=== PATIENT | male | born 1965 | race Caucasian/White ===

== ENCOUNTER 2017-03-10 11:16 | Emergency (ER) | payer MEDICAID, MEDICARE ==
[~2017-03-10] VITALS: Ht 182.9 cm; Wt 70.0 kg
[~2017-03-10 11:16] MED LIST: DICL100T2 PO; GABA-531 PO; INSU3INS6 SUBCUT; PROT20 PO
[2017-03-10 11:50] VITALS: BP 175/87
[2017-03-10] MEDS ORDERED: KETOROLAC 60MG/2ML VIAL IM ONE (12:00)
[2017-03-10] MEDS ORDERED: OXYCODONE HCL/ACETAMINOPHEN 5/325MG TABLET PO ONE (12:00)
== END 2017-03-10 13:18 | disposition home or self-care (01) ==
LOC: ER 11:30
DX: N39.0 Urinary tract infection, site not specified (principal); M54.5 Low back pain; E11.9 Type 2 diabetes mellitus without complications; I10 Essential (primary) hypertension; K76.9 Liver disease, unspecified; Z89.422 Acquired absence of other left toe(s); Z88.0 Allergy status to penicillin; Z79.4 Long term (current) use of insulin; Z88.6 Allergy status to analgesic agent
CPT/HCPCS: 99283; J1885; Z7610

== ENCOUNTER 2018-07-15 14:21 | Inpatient (IN) | payer BC, OTHER ==
[~2018-07-15] VITALS: Ht 167.6 cm; Wt 99.8 kg
[2018-07-15] MEDS ORDERED: AZTREONAM 1 G in DEXTROSE 5% WATER 50 ML IV STA (22:34)
[2018-07-15] MEDS ORDERED: SODIUM CHLORIDE 0.9% 1000ML BAG (SEPSIS BOLUS) IV ONE (22:45)
[2018-07-15] MEDS ORDERED: VANCOMYCIN 1 G PREMIX 200 ML IV ONE (22:45)
[2018-07-15 23:11] LABS: BASOPHILS % 0.6 % (0.0-2.0); EOSINOPHILS % 2.1 % (0.0-5.0); HEMATOCRIT. 37.2 % (42.0-52.0); HEMOGLOBIN. 12.6 g/dL (14.0-18.0); LYMPHOCYTES % 19.1 % (20.0-50.0); MEAN CORPUSCULAR VOLUME 94.6 fL (80.0-94.0); MEAN PLATELET VOLUME 7.4 fl (7.4-10.4); MONOCYTES % 7.3 % (2.0-8.0); NEUTROPHILS % 70.9 % (40.0-76.0); PLATELET 190 x1000/uL (130-400); RED BLOOD CELL COUNT 3.93 mill/uL (4.7-6.1); RED CELL DISTRIBUTION WIDTH 13.4 % (11.6-14.6)
[2018-07-15 23:11] LABS: CLARITY URINE CLEAR (CLEAR); COLOR URINE YELLOW (YELLOW); KETONES URINE TRACE (NEGATIVE); LEUKOCYTE ESTERASE URINE NEGATIVE (NEGATIVE); NITRITE URINE NEGATIVE (NEGATIVE); OCCULT BLOOD URINE 2+ (NEGATIVE); PROTEIN URINE 4+ (NEGATIVE); SPECIFIC GRAVITY URINE 1.027 (1.005-1.030)
[2018-07-15 23:19] LABS: CHLORIDE 107 mEq/L (98-107)
[2018-07-16 16:19] VITALS: BP 169/74
[2018-07-16] MEDS ORDERED: LIP40 MT (16:32)
[2018-07-16 20:00] VITALS: BP 155/87
[2018-07-17] VITALS: BP 126/67
[2018-07-17 04:00] VITALS: BP 145/84
[2018-07-17 08:00] VITALS: BP 132/82
[2018-07-17] MEDS ORDERED: ENOXAPARIN 40MG/0.4ML SYR SUBCUT SCH (09:00)
[2018-07-17] MEDS: VANCOMYCIN 1250MG in DEXTROSE 5% WATER 250ML IV SCH (09:02)
[2018-07-17] MEDS: SODIUM CHLORIDE 0.45% 1,000 ML IV SCH ×2 (09:03→21:20)
[2018-07-17] MEDS: ENOXAPARIN 30MG/0.3ML SYR SUBCUT SCH ×2 (09:03→20:42)
[2018-07-17 11:06] LABS: BASOPHILS % 0.7 % (0.0-2.0); EOSINOPHILS % 2.7 % (0.0-5.0); HEMATOCRIT. 31.8 % (42.0-52.0); HEMOGLOBIN. 10.8 g/dL (14.0-18.0); MEAN CORPUSCULAR HEMOGLOBIN 32.4 pg (28.0-32.0); MEAN CORPUSCULAR VOLUME 95.4 fL (80.0-94.0); MEAN PLATELET VOLUME 7.3 fl (7.4-10.4); MONOCYTES % 6.2 % (2.0-8.0); NEUTROPHILS % 73.4 % (40.0-76.0); PLATELET 135 x1000/uL (130-400); RED BLOOD CELL COUNT 3.33 mill/uL (4.7-6.1); RED CELL DISTRIBUTION WIDTH 13.7 % (11.6-14.6)
[2018-07-17 12:00] VITALS: BP 139/71
[2018-07-17] MEDS ORDERED: DEXTROSE 50% WATER 50ML SYRINGE IV PRN (13:15)
[2018-07-17] MEDS: LEVOFLOXACIN 500MG TABLET PO SCH (13:49)
[2018-07-17 16:00] VITALS: BP 124/82
[2018-07-17] MEDS: BLOOD SUGAR DIAGNOSTIC STRIP TEST SCH ×2 (17:34→20:28)
[2018-07-17] MEDS ORDERED: HYDROCODONE/ACETAMINOPHEN 5/325MG TABLET PO PRN (18:15)
[2018-07-17] MEDS ORDERED: DOCUSATE SODIUM 100MG CAPSULE PO PRN (18:15)
[2018-07-17] MEDS ORDERED: HYDRALAZINE 20MG/ML VIAL IV PRN (18:15)
[2018-07-17] MEDS: INSULIN LISPRO 100 UNITS/ML SUBCUT SCH ×2 (18:36→20:43)
[2018-07-17 20:00] VITALS: BP 118/57
[2018-07-17] MEDS: ATORVASTATIN CALCIUM 40MG TABLET PO SCH (20:42)
[2018-07-18] VITALS: BP 118/53
[2018-07-18] MEDS: VANCOMYCIN 1250MG in DEXTROSE 5% WATER 250ML IV SCH (02:26)
[2018-07-18 04:00] VITALS: BP 105/50
[2018-07-18] MEDS: BLOOD SUGAR DIAGNOSTIC STRIP TEST SCH ×4 (06:03→21:02)
[2018-07-18] MEDS: INSULIN LISPRO 100 UNITS/ML SUBCUT SCH ×4 (06:14→21:10)
[2018-07-18 08:07] LABS: HEMATOCRIT 32.6 % (42.0-52.0); MEAN CORPUSCULAR VOLUME 94.6 fL (80.0-94.0); PLATELET 136 x1000/uL (130-400); RED BLOOD CELL COUNT 3.45 mill/uL (4.7-6.1); RED CELL DISTRIBUTION WIDTH 13.1 % (11.6-14.6)
[2018-07-18 08:21] LABS: CHLORIDE 110 mEq/L (98-107)
[2018-07-18] MEDS: AMLODIPINE 5MG TABLET PO SCH (09:13)
[2018-07-18] MEDS: ENOXAPARIN 30MG/0.3ML SYR SUBCUT SCH ×2 (09:14→21:08)
[2018-07-18] MEDS: LEVOFLOXACIN 500MG TABLET PO SCH (14:04)
[2018-07-18] MEDS: SODIUM CHLORIDE 0.45% 1,000 ML IV SCH (17:00)
[2018-07-18 20:00] VITALS: BP 100/57
[2018-07-18] MEDS: ATORVASTATIN CALCIUM 40MG TABLET PO SCH (21:08)
[2018-07-18] MEDS ORDERED: PIPERACILLIN/TAZOBACTAM 2.25 G in DEXTROSE 5% WATER 50 ML IV SCH (22:00)
[2018-07-18] MEDS: DIPHENHYDRAMINE 50MG/ML VIAL IV PRN (22:35)
[2018-07-19] VITALS: BP 104/59
[2018-07-19] MEDS: SODIUM CHLORIDE 0.45% 1,000 ML IV SCH ×2 (00:29→13:20)
[2018-07-19] MEDS: VANCOMYCIN 1250MG in DEXTROSE 5% WATER 250ML IV SCH (02:00)
[2018-07-19 04:00] VITALS: BP 134/73
[2018-07-19] MEDS: BLOOD SUGAR DIAGNOSTIC STRIP TEST SCH ×4 (06:54→20:51)
[2018-07-19 08:00] VITALS: BP 122/75
[2018-07-19] MEDS: ENOXAPARIN 30MG/0.3ML SYR SUBCUT SCH ×2 (08:33→21:12)
[2018-07-19] MEDS: AMLODIPINE 5MG TABLET PO SCH (08:33)
[2018-07-19] MEDS: INSULIN LISPRO 100 UNITS/ML SUBCUT SCH ×4 (08:34→21:13)
[2018-07-19 12:00] VITALS: BP 118/72
[2018-07-19] MEDS: LEVOFLOXACIN 500MG TABLET PO SCH (12:41)
[2018-07-19 16:00] VITALS: BP 111/47
[2018-07-19 20:00] VITALS: BP 131/77
[2018-07-19] MEDS: ATORVASTATIN CALCIUM 40MG TABLET PO SCH (21:12)
[2018-07-19] MEDS: DIPHENHYDRAMINE 50MG/ML VIAL IV PRN (21:59)
[2018-07-20] VITALS: BP 129/76
[2018-07-20] MEDS: VANCOMYCIN 1250MG in DEXTROSE 5% WATER 250ML IV SCH (01:20)
[2018-07-20 04:00] VITALS: BP 132/75
[2018-07-20] MEDS: SODIUM CHLORIDE 0.45% 1,000 ML IV SCH ×2 (05:32→17:41)
[2018-07-20 08:00] VITALS: BP 118/61
[2018-07-20] MEDS: BLOOD SUGAR DIAGNOSTIC STRIP TEST SCH ×4 (08:37→21:00)
[2018-07-20] MEDS: AMLODIPINE 5MG TABLET PO SCH (09:41)
[2018-07-20] MEDS: ENOXAPARIN 30MG/0.3ML SYR SUBCUT SCH ×2 (09:42→20:39)
[2018-07-20] MEDS: INSULIN LISPRO 100 UNITS/ML SUBCUT SCH ×4 (09:44→20:40)
[2018-07-20] MEDS: LEVOFLOXACIN 500MG TABLET PO SCH (10:53)
[2018-07-20 12:00] VITALS: BP 103/64
[2018-07-20] MEDS ORDERED: NORMAL SALINE 0.9% 10 ML SYR ONE (13:56)
[2018-07-20] MEDS ORDERED: GENTAMICIN SULF 40MG/ML 2ML VIAL ONE (13:56)
[2018-07-20] MEDS ORDERED: BACITRACIN 50,000 UNITS/VIAL ONE (13:56)
[2018-07-20] MEDS ORDERED: LIDOCAINE HCL 1% 20ML VIAL (Pyxis) INJ ONE ×2 (13:56→14:19)
[2018-07-20] MEDS ORDERED: BUPIVACAINE HCL/PF 0.5% (5MG/ML) 10ML ONE (13:56)
[2018-07-20] MEDS ORDERED: FENTANYL CITRATE/PF 50MCG/ML 2ML VIAL ONE (14:18)
[2018-07-20] MEDS ORDERED: PROPOFOL 200MG/20ML VIAL IV ONE (14:18)
[2018-07-20] MEDS ORDERED: MIDAZOLAM HCL 2 MG/2 ML VIAL ONE (14:18)
[2018-07-20] MEDS ORDERED: GLYCOPYRROLATE 0.2 MG/ML 2ML VIAL ONE (14:19)
[2018-07-20] MEDS ORDERED: METOCLOPRAMIDE HCL 10MG/2ML VIAL ONE (14:20)
[2018-07-20] MEDS ORDERED: ONDANSETRON HCL 4MG/2ML INJ ONE (14:20)
[2018-07-20] MEDS ORDERED: SUCCINYLCHOLINE CHLORIDE 200MG/10ML IV ONE (14:20)
[2018-07-20] MEDS ORDERED: HYDROMORPHONE HCL/PF 2MG/ML CPJ IV PRN (16:00)
[2018-07-20] MEDS ORDERED: MEPERIDINE HCL/PF 25MG/ML CPJ IV PRN (16:00)
[2018-07-20] MEDS ORDERED: ONDANSETRON HCL 4MG/2ML INJ IV PRN (16:00)
[2018-07-20] MEDS ORDERED: SODIUM CHLORIDE 0.9% 1,000 ML IV ONE (16:15)
[2018-07-20 17:40] VITALS: BP 100/59
[2018-07-20 18:52] LABS: HEMATOCRIT 28.3 % (42.0-52.0); HEMOGLOBIN 9.5 g/dL (14.0-18.0); MEAN CORPUSCULAR VOLUME 95.3 fL (80.0-94.0); PLATELET 140 x1000/uL (130-400); RED BLOOD CELL COUNT 2.96 mill/uL (4.7-6.1); RED CELL DISTRIBUTION WIDTH 13.6 % (11.6-14.6)
[2018-07-20 20:00] VITALS: BP 109/53
[2018-07-20] MEDS: ATORVASTATIN CALCIUM 40MG TABLET PO SCH (20:38)
[2018-07-20] MEDS: DIPHENHYDRAMINE 50MG/ML VIAL IV PRN (21:06)
[2018-07-20] MEDS ORDERED: INSULIN GLARGINE UD 100 UNITS/ML SYR SUBCUT SCH (22:00)
[2018-07-21] VITALS (8 sets, daily range): BP systolic 92–130; BP diastolic 41–67
[2018-07-21] MEDS: VANCOMYCIN 1250MG in DEXTROSE 5% WATER 250ML IV SCH (01:18)
[2018-07-21] MEDS: SODIUM CHLORIDE 0.45% 1,000 ML IV SCH (05:23)
[2018-07-21 06:46] LABS: HEMATOCRIT 26.8 % (42.0-52.0); HEMOGLOBIN 8.9 g/dL (14.0-18.0); MEAN CORPUSCULAR HEMOGLOBIN 32.1 pg (28.0-32.0); PLATELET 124 x1000/uL (130-400); RED BLOOD CELL COUNT 2.79 mill/uL (4.7-6.1); RED CELL DISTRIBUTION WIDTH 13.5 % (11.6-14.6)
[2018-07-21] MEDS: BLOOD SUGAR DIAGNOSTIC STRIP TEST SCH ×4 (07:40→20:11)
[2018-07-21] MEDS: AMLODIPINE 5MG TABLET PO SCH (08:29)
[2018-07-21] MEDS: ENOXAPARIN 30MG/0.3ML SYR SUBCUT SCH ×2 (08:30→20:11)
[2018-07-21] MEDS: INSULIN LISPRO 100 UNITS/ML SUBCUT SCH ×4 (08:31→20:19)
[2018-07-21] MEDS: LEVOFLOXACIN 500MG TABLET PO SCH (11:36)
[2018-07-21] MEDS: ATORVASTATIN CALCIUM 40MG TABLET PO SCH (20:11)
[2018-07-22] MEDS ORDERED: VANCOMYCIN 1250MG in DEXTROSE 5% WATER 250ML IV SCH ×4 (14:00)
== END 2018-07-21 22:00 | DRG 240 ==
LOC: ER 14:21 → 7WST 07-16 01:22 → ENRESERV 07-16 15:20
PROVIDERS: ADMIT Internal Medicine; ATTEND Internal Medicine
PROC: 02HV33Z Insertion of Infusion Device into Superior Vena Cava, Percutaneous Approach (ICD-10-PCS; 2018-07-17)
PROC: B5181ZA Fluoroscopy of Superior Vena Cava using Low Osmolar Contrast, Guidance (ICD-10-PCS; 2018-07-17)
PROC: B548ZZA Ultrasonography of Superior Vena Cava, Guidance (ICD-10-PCS; 2018-07-17)
PROC: 0Y6M0Z9 Detachment at Right Foot, Partial 1st Ray, Open Approach (ICD-10-PCS; principal; 2018-07-20)
PROC: 0Y6M0ZB Detachment at Right Foot, Partial 2nd Ray, Open Approach (ICD-10-PCS; 2018-07-20)
PROC: 0Y6M0ZC Detachment at Right Foot, Partial 3rd Ray, Open Approach (ICD-10-PCS; 2018-07-20)
PROC: 0Y6M0ZD Detachment at Right Foot, Partial 4th Ray, Open Approach (ICD-10-PCS; 2018-07-20)
PROC: 0Y6M0ZF Detachment at Right Foot, Partial 5th Ray, Open Approach (ICD-10-PCS; 2018-07-20)
DX: E11.52 Type 2 diabetes mellitus with diabetic peripheral angiopathy with gangrene (principal); L03.115 Cellulitis of right lower limb; L97.526 Non-pressure chronic ulcer of other part of left foot with bone involvement without evidence of necrosis; E11.42 Type 2 diabetes mellitus with diabetic polyneuropathy; E11.22 Type 2 diabetes mellitus with diabetic chronic kidney disease; E11.610 Type 2 diabetes mellitus with diabetic neuropathic arthropathy; E11.621 Type 2 diabetes mellitus with foot ulcer; E11.65 Type 2 diabetes mellitus with hyperglycemia; E11.21 Type 2 diabetes mellitus with diabetic nephropathy; I13.10 Hypertensive heart and chronic kidney disease without heart failure, with stage 1 through stage 4 chronic kidney disease, or unspecified chronic kidney disease; N18.9 Chronic kidney disease, unspecified; D64.9 Anemia, unspecified; E66.9 Obesity, unspecified; M17.11 Unilateral primary osteoarthritis, right knee; Z79.2 Long term (current) use of antibiotics; Z88.0 Allergy status to penicillin; Z88.1 Allergy status to other antibiotic agents; Z89.422 Acquired absence of other left toe(s); Z91.19 Patient's noncompliance with other medical treatment and regimen; Z68.35 Body mass index [BMI] 35.0-35.9, adult
CPT/HCPCS: 36415; 36569; 71045; 73630; 73721; 76937; 77001; 80048; 80061; 80202; 82962; 83036; 83605; 84145; 84484; 85027; 87070; 87077; 87186; 88305; 88311; 93005; 93306; 93923; 93970; 96365; 96367; 97162; 97164; 97530; 99285; C1725; J0330; J1200; J1580; J1650; J1815; J2250; J2405; J2704; J2765; J3010; J3370; J3490; J7030; J7060

== ENCOUNTER 2019-03-17 17:59 | Inpatient (IN) | payer MEDICARE, OTHER ==
[~2019-03-17] VITALS: Ht 172.7 cm; Wt 113.4 kg
[~2019-03-17 17:59] MED LIST changes: -DICL100T2 PO; -GABA-531 PO; -INSU3INS6 SUBCUT; +LIP40 MT; -PROT20 PO
[2019-03-17] MEDS ORDERED: VANCOMYCIN 1 G PREMIX 200 ML IV ONE (18:30)
[2019-03-17] MEDS ORDERED: ONDANSETRON HCL 4MG/2ML INJ IV ONE (18:30)
[2019-03-17] MEDS ORDERED: FENTANYL CITRATE/PF 50MCG/ML 2ML VIAL IV ONE (18:30)
[2019-03-17] MEDS ORDERED: SODIUM CHLORIDE 0.9% 1000ML BAG (SEPSIS BOLUS) IV ONE (18:30)
[2019-03-17 18:40] LABS: BG BASE EXCESS -6.7 mmol/L (-2.0-2.0); BG CARBOXYHEMOGLOBIN 0.3 % (0.5-1.5); BG DEOXYHEMOGLOBIN 5.6 % (0.0-5.0); BG FRACTION INSPIRED OXYGEN 21; BG HCO3 ACT 17.3 mmol/L (22.0-26.0); BG METHEMOGLOBIN 0.2 % (0.0-1.5); BG OXYGEN SATURATION 94.4 % (92.0-98.5); BG OXYHEMOGLOBIN 93.9 % (94.0-97.0); BG PCO2 29.6 mmHg (35.0-45.0); BG PH 7.384 (7.350-7.450); BG PO2 66.9 mmHg (75.0-100.0); BG SAMPLE SITE LEFT RADIAL; BG TOTAL HEMOGLOBIN 10.7 g/dL (12.0-18.0); BG VENT MODE ROOM AIR
[2019-03-17 18:57] LABS: BASOPHILS % 0.3 % (0.0-2.0); CHLORIDE 100 mEq/L (98-107); EOSINOPHILS % 1.5 % (0.0-5.0); HEMATOCRIT. 29.3 % (42.0-52.0); INR 1.1; LYMPHOCYTES % 8.8 % (20.0-50.0); MEAN CORPUSCULAR HEMOGLOBIN 31.8 pg (28.0-32.0); MEAN CORPUSCULAR VOLUME 93.5 fL (80.0-94.0); MEAN PLATELET VOLUME 6.9 fl (7.4-10.4); MONOCYTES % 13.7 % (2.0-8.0); NEUTROPHILS % 75.7 % (40.0-76.0); PLATELET 241 x1000/uL (130-400); PROTHROMBIN TIME 11.6 sec (9.6-11.0); RED BLOOD CELL COUNT 3.13 mill/uL (4.7-6.1)
[2019-03-17] MEDS ORDERED: LEVOFLOXACIN 500MG PREMIX 100 ML IV ONE (19:00)
[2019-03-17 19:01] LABS: ETHANOL BLOOD < 10 mg/dL
[2019-03-17] MEDS ORDERED: ACETAMINOPHEN 325MG TABLET PO ONE (19:15)
[2019-03-17] MEDS ORDERED: BACITRACIN ZINC OINT UDPKT TOP ONE (19:15)
[2019-03-17] MEDS ORDERED: TETANUS, DIPHTHERIA, PERTUSSIS VAC/PF 0.5ML (>7YR OLD) IM ONE (19:15)
[2019-03-17] MEDS ORDERED: LIDOCAINE HCL/PF 1% 10 MG/ML 5ML VIAL IJ ONE (19:15)
[2019-03-17] MEDS ORDERED: IBUPROFEN 600MG TABLET PO ONE (19:15)
[2019-03-17] MEDS ORDERED: FUROSEMIDE 20MG/2ML VIAL IVP ONE (19:30)
[2019-03-17] MEDS ORDERED: ENOXAPARIN 80MG/0.8ML SYR SUBCUT ONE (20:00)
[2019-03-17] MEDS ORDERED: INSULIN REGULAR (HUMULIN R) 300UNITS/3ML IV ONE (20:30)
[2019-03-17] MEDS ORDERED: NOREPINEPHRINE 4MG/250ML PMX 250 ML IV ONE (21:15)
[2019-03-17] MEDS ORDERED: NOREPINEPHRINE 4 MG in DEXT 5% WATER 246 ML IV ONE ×2 (21:30→23:00)
[2019-03-17] MEDS ORDERED: NOREPINEPHRINE 4MG/250ML PMX 250 ML IV SCH (23:45)
[2019-03-17 23:49] VITALS: BP 92/41
[2019-03-18] VITALS (99 sets, daily range): BP systolic 63–125; BP diastolic 20–71
[2019-03-18] MEDS ORDERED: SODIUM CHLORIDE 0.9% 1,000 ML IV ONE ×2 (03:30)
[2019-03-18] MEDS ORDERED: DEXTROSE 50% WATER 50ML SYRINGE IV PRN ×2 (03:30→18:45)
[2019-03-18] MEDS: HYDROMORPHONE HCL/PF 2MG/ML CPJ IV PRN ×3 (03:56→22:27)
[2019-03-18] MEDS ORDERED: VANCOMYCIN 1 G PREMIX 200 ML IV SCH (05:00)
[2019-03-18] MEDS: ENOXAPARIN 100MG/ML SYR SUBCUT SCH (06:03)
[2019-03-18 07:03] LABS: HEMATOCRIT. 27.8 % (42.0-52.0); HEMOGLOBIN. 9.2 g/dL (14.0-18.0); MEAN CORPUSCULAR HEMOGLOBIN 31.4 pg (28.0-32.0); MEAN CORPUSCULAR VOLUME 94.4 fL (80.0-94.0); MEAN PLATELET VOLUME 6.8 fl (7.4-10.4); PLATELET 264 x1000/uL (130-400); RED BLOOD CELL COUNT 2.94 mill/uL (4.7-6.1); RED CELL DISTRIBUTION WIDTH 13.1 % (11.6-14.6)
[2019-03-18] MEDS: BLOOD SUGAR DIAGNOSTIC STRIP TEST SCH ×4 (07:29→20:00)
[2019-03-18] MEDS ORDERED: INSULIN LISPRO 100 UNITS/ML SUBCUT SCH ×3 (08:00→16:00)
[2019-03-18 08:21] LABS: BG BASE EXCESS -12.5 mmol/L (-2.0-2.0); BG CARBOXYHEMOGLOBIN 0.5 % (0.5-1.5); BG DEOXYHEMOGLOBIN 3.1 % (0.0-5.0); BG FRACTION INSPIRED OXYGEN 21; BG HCO3 ACT 14.1 mmol/L (22.0-26.0); BG METHEMOGLOBIN 0.3 % (0.0-1.5); BG OXYGEN SATURATION 96.9 % (92.0-98.5); BG OXYHEMOGLOBIN 96.1 % (94.0-97.0); BG PCO2 34.7 mmHg (35.0-45.0); BG PH 7.227 (7.350-7.450); BG PO2 93.7 mmHg (75.0-100.0); BG SAMPLE SITE RIGHT RADIAL; BG TOTAL HEMOGLOBIN 12.5 g/dL (12.0-18.0); BG VENT MODE ROOM AIR
[2019-03-18] MEDS: FAMOTIDINE 20MG/2ML VIAL IV SCH (09:10)
[2019-03-18 09:23] LABS: PLATELET ESTIMATE NORMAL
[2019-03-18] MEDS ORDERED: SODIUM BICARBONATE 8.4% 1 MEQ/ML 50ML SYR IV NR (10:12)
[2019-03-18] MEDS ORDERED: SODIUM BICARBONATE 100 MEQ in SODIUM CHLORIDE 0.45% 1,000 ML IV SCH (11:30)
[2019-03-18] MEDS ORDERED: INSULIN GLARGINE UD 100 UNITS/ML SYR SUBCUT NR (12:30)
[2019-03-18 12:34] LABS: BG BASE EXCESS -8.9 mmol/L (-2.0-2.0); BG CARBOXYHEMOGLOBIN 0.3 % (0.5-1.5); BG DEOXYHEMOGLOBIN 2.6 % (0.0-5.0); BG FRACTION INSPIRED OXYGEN 21; BG HCO3 ACT 16.6 mmol/L (22.0-26.0); BG METHEMOGLOBIN 0.1 % (0.0-1.5); BG OXYGEN SATURATION 97.4 % (92.0-98.5); BG PCO2 34.2 mmHg (35.0-45.0); BG PH 7.303 (7.350-7.450); BG PO2 93.6 mmHg (75.0-100.0); BG SAMPLE SITE RIGHT RADIAL; BG TOTAL HEMOGLOBIN 10.3 g/dL (12.0-18.0); BG VENT MODE ROOM AIR
[2019-03-18] MEDS ORDERED: HEPARIN 100 UNITS/1 ML VIAL IVF PRN (14:00)
[2019-03-18] MEDS ORDERED: BLOOD SUGAR DIAGNOSTIC STRIP TEST SCH (16:00)
[2019-03-18] MEDS: SODIUM BICARBONATE 100 MEQ in SODIUM CHLORIDE 0.9% 1,000 ML IV SCH (17:32)
[2019-03-18] MEDS: DIPHENHYDRAMINE 50MG/ML VIAL IV PRN ×2 (17:32→22:27)
[2019-03-18] MEDS: NOREPINEPHRINE 4 MG in DEXT 5% WATER 246 ML IV PRN (17:33)
[2019-03-18] MEDS: INSULIN LISPRO 100 UNITS/ML SUBCUT SCH ×2 (18:56→22:52)
[2019-03-18] MEDS ORDERED: LEVOFLOXACIN 500MG PREMIX 100 ML IV SCH (19:00)
[2019-03-19] VITALS (75 sets, daily range): BP systolic 65–146; BP diastolic 35–96
[2019-03-19] MEDS: BLOOD SUGAR DIAGNOSTIC STRIP TEST SCH ×6 (04:00→20:48)
[2019-03-19] MEDS: INSULIN LISPRO 100 UNITS/ML SUBCUT SCH ×6 (05:17→20:21)
[2019-03-19] MEDS: SODIUM BICARBONATE 100 MEQ in SODIUM CHLORIDE 0.9% 1,000 ML IV SCH ×2 (05:18→18:20)
[2019-03-19] MEDS: NOREPINEPHRINE 4 MG in DEXT 5% WATER 246 ML IV PRN (06:05)
[2019-03-19 06:12] LABS: HEMATOCRIT. 28.4 % (42.0-52.0); HEMOGLOBIN. 9.4 g/dL (14.0-18.0); MEAN PLATELET VOLUME 6.5 fl (7.4-10.4); PLATELET 274 x1000/uL (130-400); RED BLOOD CELL COUNT 3.02 mill/uL (4.7-6.1); RED CELL DISTRIBUTION WIDTH 13.2 % (11.6-14.6)
[2019-03-19] MEDS ORDERED: VANCOMYCIN 1500MG in DEXTROSE 5% WATER 250ML IV SCH (09:00)
[2019-03-19] MEDS: HYDROMORPHONE HCL/PF 2MG/ML CPJ IV PRN ×2 (09:35→21:06)
[2019-03-19] MEDS: FAMOTIDINE 20MG/2ML VIAL IV SCH (09:38)
[2019-03-19 09:46] LABS: BG BASE EXCESS -8.6 mmol/L (-2.0-2.0); BG CARBOXYHEMOGLOBIN 0.3 % (0.5-1.5); BG DEOXYHEMOGLOBIN 4.8 % (0.0-5.0); BG FRACTION INSPIRED OXYGEN 21; BG HCO3 ACT 16.8 mmol/L (22.0-26.0); BG METHEMOGLOBIN 0.1 % (0.0-1.5); BG OXYGEN SATURATION 95.2 % (92.0-98.5); BG OXYHEMOGLOBIN 94.8 % (94.0-97.0); BG PCO2 34.2 mmHg (35.0-45.0); BG PH 7.309 (7.350-7.450); BG PO2 73.9 mmHg (75.0-100.0); BG SAMPLE SITE LEFT BRACHIAL; BG TOTAL HEMOGLOBIN 9.5 g/dL (12.0-18.0); BG VENT MODE ROOM AIR
[2019-03-19] MEDS ORDERED: SODIUM BICARBONATE 8.4% 1 MEQ/ML 50ML SYR IV NR (11:00)
[2019-03-19] MEDS: DIPHENHYDRAMINE 50MG/ML VIAL IV PRN ×2 (12:48→21:07)
[2019-03-19] MEDS ORDERED: INSULIN GLARGINE UD 100 UNITS/ML SYR SUBCUT NR (16:30)
[2019-03-19] MEDS: ENOXAPARIN 100MG/ML SYR SUBCUT SCH (18:29)
[2019-03-19] MEDS: MIDODRINE HCL 5MG TABLET PO SCH (18:29)
[2019-03-20] VITALS (87 sets, daily range): BP systolic 47–127; BP diastolic 23–79
[2019-03-20] MEDS: BLOOD SUGAR DIAGNOSTIC STRIP TEST SCH ×6 (00:28→20:00)
[2019-03-20] MEDS: INSULIN LISPRO 100 UNITS/ML SUBCUT SCH ×6 (00:35→21:14)
[2019-03-20] MEDS: NOREPINEPHRINE 4 MG in DEXT 5% WATER 246 ML IV PRN (00:37)
[2019-03-20] MEDS: SODIUM BICARBONATE 100 MEQ in SODIUM CHLORIDE 0.9% 1,000 ML IV SCH ×2 (02:30→13:56)
[2019-03-20] MEDS: HYDROMORPHONE HCL/PF 2MG/ML CPJ IV PRN ×3 (06:07→19:08)
[2019-03-20] MEDS: DIPHENHYDRAMINE 50MG/ML VIAL IV PRN ×2 (06:08→15:19)
[2019-03-20] MEDS: ENOXAPARIN 100MG/ML SYR SUBCUT SCH ×2 (07:00→17:38)
[2019-03-20 07:49] LABS: HEMATOCRIT. 25.5 % (42.0-52.0); HEMOGLOBIN. 8.6 g/dL (14.0-18.0); MEAN CORPUSCULAR HEMOGLOBIN 31.4 pg (28.0-32.0); MEAN PLATELET VOLUME 6.4 fl (7.4-10.4); PLATELET 210 x1000/uL (130-400); RED BLOOD CELL COUNT 2.74 mill/uL (4.7-6.1); RED CELL DISTRIBUTION WIDTH 13.5 % (11.6-14.6)
[2019-03-20] MEDS: MIDODRINE HCL 5MG TABLET PO SCH ×3 (08:26→17:39)
[2019-03-20] MEDS: FAMOTIDINE 20MG/2ML VIAL IV SCH (08:26)
[2019-03-20] MEDS ORDERED: VANCOMYCIN 1 G PREMIX 200 ML IV NR (09:30)
[2019-03-20] MEDS ORDERED: INSULIN GLARGINE UD 100 UNITS/ML SYR SUBCUT SCH (10:00)
[2019-03-20 10:16] LABS: BG BASE EXCESS -2.5 mmol/L (-2.0-2.0); BG CARBOXYHEMOGLOBIN 0.3 % (0.5-1.5); BG DEOXYHEMOGLOBIN 4.6 % (0.0-5.0); BG FRACTION INSPIRED OXYGEN 24; BG HCO3 ACT 23.6 mmol/L (22.0-26.0); BG METHEMOGLOBIN 0.1 % (0.0-1.5); BG OXYGEN SATURATION 95.4 % (92.0-98.5); BG PH 7.319 (7.350-7.450); BG PO2 76.9 mmHg (75.0-100.0); BG SAMPLE SITE RIGHT RADIAL; BG TOTAL HEMOGLOBIN 9.4 g/dL (12.0-18.0); BG VENT MODE NASAL CANNULA
[2019-03-20 14:27] LABS: CLARITY URINE TURBID (CLEAR); COLOR URINE DARK YELLOW (YELLOW); KETONES URINE TRACE (NEGATIVE); LEUKOCYTE ESTERASE URINE TRACE (NEGATIVE); NITRITE URINE NEGATIVE (NEGATIVE); OCCULT BLOOD URINE NEGATIVE (NEGATIVE); PROTEIN URINE 3+ (NEGATIVE); SPECIFIC GRAVITY URINE 1.018 (1.005-1.030)
[2019-03-20 14:36] LABS: PLATELET ESTIMATE NORMAL
[2019-03-20] MEDS: DOCUSATE SODIUM 100MG CAPSULE PO SCH (21:13)
[2019-03-21] VITALS (74 sets, daily range): BP systolic 76–155; BP diastolic 27–84
[2019-03-21] MEDS: INSULIN LISPRO 100 UNITS/ML SUBCUT SCH ×6 (01:08→20:17)
[2019-03-21] MEDS: DIPHENHYDRAMINE 50MG/ML VIAL IV PRN (01:13)
[2019-03-21] MEDS: SODIUM BICARBONATE 100 MEQ in SODIUM CHLORIDE 0.9% 1,000 ML IV SCH ×2 (01:28→13:23)
[2019-03-21] MEDS: HYDROMORPHONE HCL/PF 2MG/ML CPJ IV PRN ×4 (01:28→20:18)
[2019-03-21] MEDS: BLOOD SUGAR DIAGNOSTIC STRIP TEST SCH ×6 (04:54→20:18)
[2019-03-21] MEDS: ENOXAPARIN 100MG/ML SYR SUBCUT SCH ×2 (05:43→17:32)
[2019-03-21 06:59] LABS: HEMATOCRIT. 24.1 % (42.0-52.0); HEMOGLOBIN. 8.1 g/dL (14.0-18.0); MEAN CORPUSCULAR HEMOGLOBIN 31.2 pg (28.0-32.0); MEAN PLATELET VOLUME 6.5 fl (7.4-10.4); PLATELET 173 x1000/uL (130-400); RED BLOOD CELL COUNT 2.59 mill/uL (4.7-6.1); RED CELL DISTRIBUTION WIDTH 13.7 % (11.6-14.6)
[2019-03-21] MEDS: MIDODRINE HCL 5MG TABLET PO SCH ×3 (09:21→16:53)
[2019-03-21] MEDS: DOCUSATE SODIUM 100MG CAPSULE PO SCH ×2 (09:21→16:12)
[2019-03-21] MEDS: FAMOTIDINE 20MG/2ML VIAL IV SCH (09:49)
[2019-03-21] MEDS ORDERED: INSULIN GLARGINE UD 100 UNITS/ML SYR SUBCUT SCH (10:00)
[2019-03-21] MEDS: INSULIN GLARGINE UD 100 UNITS/ML SYR SUBCUT SCH (10:32)
[2019-03-21 11:40] LABS: NUCLEATED RED BLOOD CELLS 1 /100 WBC; PLATELET ESTIMATE NORMAL
[2019-03-21] MEDS ORDERED: FUROSEMIDE 40MG/4ML VIAL IVP NR (14:30)
[2019-03-21 18:52] LABS: NUCLEATED RED BLOOD CELLS 1 /100 WBC; PLATELET ESTIMATE NORMAL
[2019-03-21] MEDS ORDERED: VANCOMYCIN 1 G PREMIX 200 ML IV NR (22:00)
[2019-03-22] VITALS (85 sets, daily range): BP systolic 73–159; BP diastolic 38–95
[2019-03-22] MEDS: INSULIN LISPRO 100 UNITS/ML SUBCUT SCH ×7 (00:03→23:54)
[2019-03-22] MEDS: BLOOD SUGAR DIAGNOSTIC STRIP TEST SCH ×7 (00:04→23:54)
[2019-03-22] MEDS: SODIUM BICARBONATE 100 MEQ in SODIUM CHLORIDE 0.9% 1,000 ML IV SCH (00:04)
[2019-03-22] MEDS: DIPHENHYDRAMINE 50MG/ML VIAL IV PRN ×3 (04:34→16:33)
[2019-03-22] MEDS: HYDROMORPHONE HCL/PF 2MG/ML CPJ IV PRN ×3 (04:41→16:33)
[2019-03-22] MEDS: ENOXAPARIN 100MG/ML SYR SUBCUT SCH ×2 (05:44→18:10)
[2019-03-22 06:40] LABS: HEMATOCRIT. 26.6 % (42.0-52.0); MEAN CORPUSCULAR HEMOGLOBIN 31.4 pg (28.0-32.0); MEAN CORPUSCULAR VOLUME 93.4 fL (80.0-94.0); MEAN PLATELET VOLUME 6.7 fl (7.4-10.4); PLATELET 185 x1000/uL (130-400); RED BLOOD CELL COUNT 2.85 mill/uL (4.7-6.1); RED CELL DISTRIBUTION WIDTH 13.9 % (11.6-14.6)
[2019-03-22 10:45] LABS: NUCLEATED RED BLOOD CELLS 1 /100 WBC; PLATELET ESTIMATE NORMAL
[2019-03-22] MEDS ORDERED: POTASSIUM CHLORIDE 20MEQ TABLET SR PO NR (11:15)
[2019-03-22] MEDS: MIDODRINE HCL 5MG TABLET PO SCH ×3 (11:35→16:32)
[2019-03-22] MEDS: DOCUSATE SODIUM 100MG CAPSULE PO SCH ×2 (11:35→16:55)
[2019-03-22] MEDS: FAMOTIDINE 20MG/2ML VIAL IV SCH (11:36)
[2019-03-22] MEDS: INSULIN GLARGINE UD 100 UNITS/ML SYR SUBCUT SCH (11:37)
[2019-03-22] MEDS ORDERED: FUROSEMIDE 40MG/4ML VIAL IVP SCH (11:45)
[2019-03-22] MEDS: NOREPINEPHRINE 4 MG in DEXT 5% WATER 246 ML IV PRN (18:10)
[2019-03-23] VITALS (86 sets, daily range): BP systolic 72–164; BP diastolic 27–99
[2019-03-23] MEDS ORDERED: SODIUM BICARBONATE 100 MEQ in SODIUM CHLORIDE 0.9% 1,000 ML IV SCH ×2
[2019-03-23] MEDS: HYDROMORPHONE HCL/PF 2MG/ML CPJ IV PRN ×4 (00:01→21:05)
[2019-03-23] MEDS: INSULIN LISPRO 100 UNITS/ML SUBCUT SCH ×4 (04:00→22:46)
[2019-03-23] MEDS: BLOOD SUGAR DIAGNOSTIC STRIP TEST SCH ×5 (04:14→21:36)
[2019-03-23 06:13] LABS: HEMATOCRIT. 26.1 % (42.0-52.0); HEMOGLOBIN. 8.7 g/dL (14.0-18.0); MEAN CORPUSCULAR VOLUME 93.5 fL (80.0-94.0); MEAN PLATELET VOLUME 6.1 fl (7.4-10.4); PLATELET 181 x1000/uL (130-400)
[2019-03-23] MEDS: DIPHENHYDRAMINE 50MG/ML VIAL IV PRN ×3 (07:12→16:52)
[2019-03-23] MEDS ORDERED: VANCOMYCIN 1 G PREMIX 200 ML IV NR (09:00)
[2019-03-23] MEDS: DOCUSATE SODIUM 100MG CAPSULE PO SCH ×2 (09:00→17:00)
[2019-03-23] MEDS: FAMOTIDINE 20MG/2ML VIAL IV SCH (09:38)
[2019-03-23] MEDS ORDERED: SODIUM BICARBONATE 4% (2.4MEQ) 5ML VIAL IV ONE (09:49)
[2019-03-23] MEDS ORDERED: LIDOCAINE HCL 1% 20ML VIAL (Pyxis) INJ ONE (09:49)
[2019-03-23] MEDS: INSULIN GLARGINE UD 100 UNITS/ML SYR SUBCUT SCH (10:00)
[2019-03-23 10:42] LABS: PLATELET ESTIMATE NORMAL
[2019-03-23] MEDS ORDERED: FUROSEMIDE 40MG/4ML VIAL IVP SCH (12:15)
[2019-03-23] MEDS: ACETAMINOPHEN 325MG TABLET PO PRN (12:41)
[2019-03-23] MEDS: MIDODRINE HCL 5MG TABLET PO SCH ×3 (13:00→17:00)
[2019-03-23 17:45] LABS: BG BASE EXCESS 1.2 mmol/L (-2.0-2.0); BG CARBOXYHEMOGLOBIN 0.3 % (0.5-1.5); BG DEOXYHEMOGLOBIN 5.3 % (0.0-5.0); BG HCO3 ACT 27.1 mmol/L (22.0-26.0); BG METHEMOGLOBIN 0.3 % (0.0-1.5); BG OXYGEN SATURATION 94.7 % (92.0-98.5); BG OXYHEMOGLOBIN 94.1 % (94.0-97.0); BG PCO2 48.9 mmHg (35.0-45.0); BG PH 7.361 (7.350-7.450); BG PO2 73.3 mmHg (75.0-100.0); BG SAMPLE SITE RIGHT RADIAL; BG TOTAL HEMOGLOBIN 9.5 g/dL (12.0-18.0); BG VENT MODE NASAL CANNULA
[2019-03-23] MEDS ORDERED: BLOOD SUGAR DIAGNOSTIC STRIP TEST SCH (20:00)
[2019-03-23] MEDS: ACETYLCYSTEINE 100MG/ML 10% VIAL 4ML INH SCH (23:00)
[2019-03-24] VITALS (83 sets, daily range): BP systolic 78–158; BP diastolic 30–103
[2019-03-24] MEDS: DIPHENHYDRAMINE 50MG/ML VIAL IV PRN ×2 (02:01→21:17)
[2019-03-24] MEDS: HYDROMORPHONE HCL/PF 2MG/ML CPJ IV PRN ×3 (02:02→21:18)
[2019-03-24] MEDS: BLOOD SUGAR DIAGNOSTIC STRIP TEST SCH ×4 (04:04→23:26)
[2019-03-24] MEDS: INSULIN LISPRO 100 UNITS/ML SUBCUT SCH ×4 (04:14→23:32)
[2019-03-24] MEDS: NOREPINEPHRINE 4 MG in DEXT 5% WATER 246 ML IV PRN (05:41)
[2019-03-24 05:49] LABS: BASOPHILS % 0.5 % (0.0-2.0); EOSINOPHILS % 1.9 % (0.0-5.0); HEMATOCRIT. 23.3 % (42.0-52.0); HEMOGLOBIN. 7.8 g/dL (14.0-18.0); LYMPHOCYTES % 18.4 % (20.0-50.0); MEAN CORPUSCULAR HEMOGLOBIN 31.4 pg (28.0-32.0); MEAN CORPUSCULAR VOLUME 93.5 fL (80.0-94.0); MONOCYTES % 14.2 % (2.0-8.0); PLATELET 138 x1000/uL (130-400); RED BLOOD CELL COUNT 2.49 mill/uL (4.7-6.1); RED CELL DISTRIBUTION WIDTH 13.8 % (11.6-14.6)
[2019-03-24] MEDS: FAMOTIDINE 20MG/2ML VIAL IV SCH (08:14)
[2019-03-24] MEDS: DOCUSATE SODIUM 100MG CAPSULE PO SCH ×2 (08:14→17:10)
[2019-03-24] MEDS: MIDODRINE HCL 5MG TABLET PO SCH ×3 (08:14→17:13)
[2019-03-24] MEDS: INSULIN GLARGINE UD 100 UNITS/ML SYR SUBCUT SCH (09:39)
[2019-03-24] MEDS ORDERED: FUROSEMIDE 40MG/4ML VIAL IVP NR (18:45)
[2019-03-24] MEDS: ACETAMINOPHEN 325MG TABLET PO PRN (20:20)
[2019-03-24] MEDS: ACETYLCYSTEINE 100MG/ML 10% VIAL 4ML INH SCH (22:00)
[2019-03-25] VITALS (11 sets, daily range): BP systolic 86–157; BP diastolic 53–83
[2019-03-25] MEDS: BLOOD SUGAR DIAGNOSTIC STRIP TEST SCH ×4 (05:49→23:45)
[2019-03-25] MEDS: INSULIN LISPRO 100 UNITS/ML SUBCUT SCH ×4 (05:53→23:55)
[2019-03-25 07:41] LABS: BASOPHILS % 0.3 % (0.0-2.0); HEMATOCRIT. 29.6 % (42.0-52.0); HEMOGLOBIN. 9.9 g/dL (14.0-18.0); LYMPHOCYTES % 14.7 % (20.0-50.0); MEAN CORPUSCULAR HEMOGLOBIN 30.1 pg (28.0-32.0); MONOCYTES % 7.7 % (2.0-8.0); NEUTROPHILS % 75.3 % (40.0-76.0); PLATELET 135 x1000/uL (130-400); RED BLOOD CELL COUNT 3.29 mill/uL (4.7-6.1); RED CELL DISTRIBUTION WIDTH 15.2 % (11.6-14.6)
[2019-03-25] MEDS: FAMOTIDINE 20MG/2ML VIAL IV SCH (08:57)
[2019-03-25] MEDS: DOCUSATE SODIUM 100MG CAPSULE PO SCH ×3 (08:57→17:21)
[2019-03-25] MEDS: MIDODRINE HCL 5MG TABLET PO SCH ×3 (08:58→17:21)
[2019-03-25] MEDS ORDERED: VANCOMYCIN HCL 500 MG/VIAL ONE ×5 (09:02→11:38)
[2019-03-25] MEDS ORDERED: ROPIVACAINE HCL 10MG/ML 20 ML VIAL EPI ONE (09:02)
[2019-03-25] MEDS ORDERED: BACITRACIN 50,000 UNITS/VIAL ONE ×3 (09:03→10:31)
[2019-03-25] MEDS: INSULIN GLARGINE UD 100 UNITS/ML SYR SUBCUT SCH (10:00)
[2019-03-25] MEDS ORDERED: NORMAL SALINE 0.9% 10 ML SYR ONE (10:14)
[2019-03-25] MEDS ORDERED: GENTAMICIN SULF 40MG/ML 2ML VIAL ONE (10:38)
[2019-03-25] MEDS ORDERED: FENTANYL CITRATE/PF 50MCG/ML 2ML VIAL ONE ×3 (10:44→12:03)
[2019-03-25] MEDS ORDERED: PROPOFOL 200MG/20ML VIAL IV ONE (10:44)
[2019-03-25] MEDS ORDERED: MIDAZOLAM HCL 2 MG/2 ML VIAL ONE (10:45)
[2019-03-25] MEDS ORDERED: SUCCINYLCHOLINE CHLORIDE 200MG/10ML IV ONE (10:45)
[2019-03-25] MEDS ORDERED: METOCLOPRAMIDE HCL 10MG/2ML VIAL ONE (10:45)
[2019-03-25] MEDS ORDERED: ONDANSETRON HCL 4MG/2ML INJ ONE (10:45)
[2019-03-25] MEDS ORDERED: GLYCOPYRROLATE 0.2 MG/ML 2ML VIAL ONE (10:45)
[2019-03-25] MEDS ORDERED: VANCOMYCIN 1 G PREMIX 200 ML IV NR (12:00)
[2019-03-25] MEDS ORDERED: SODIUM CHLORIDE 0.9% 1,000 ML IV ONE (12:56)
[2019-03-25] MEDS ORDERED: MEPERIDINE HCL/PF 25MG/ML CPJ IV PRN ×2 (13:00)
[2019-03-25] MEDS ORDERED: MORPHINE SULFATE 2 MG/ML CPJ (NOT FOR IM USE) IV PRN (13:00)
[2019-03-25] MEDS ORDERED: ONDANSETRON HCL 4MG/2ML INJ IV PRN (13:00)
[2019-03-25] MEDS: HYDROMORPHONE HCL/PF 2MG/ML CPJ IV PRN ×7 (13:04→23:54)
[2019-03-25] MEDS ORDERED: HYDROMORPHONE HCL/PF 2MG/ML CPJ ONE (13:04)
[2019-03-25] MEDS: HYDROCODONE/ACETAMINOPHEN 10/325MG TABLET PO PRN (15:01)
[2019-03-25] MEDS ORDERED: NOREPINEPHRINE 16 MG in DEXT 5% WATER 484 ML IV PRN (18:00)
[2019-03-25 20:50] LABS: HEMATOCRIT 25.5 % (42.0-52.0); HEMOGLOBIN 8.2 g/dL (14.0-18.0); MEAN CORPUSCULAR HEMOGLOBIN 30.2 pg (28.0-32.0); MEAN CORPUSCULAR VOLUME 93.1 fL (80.0-94.0); PLATELET 113 x1000/uL (130-400); RED BLOOD CELL COUNT 2.73 mill/uL (4.7-6.1); RED CELL DISTRIBUTION WIDTH 15.6 % (11.6-14.6)
[2019-03-25] MEDS: DIPHENHYDRAMINE 50MG/ML VIAL IV PRN (20:52)
[2019-03-26] VITALS (16 sets, daily range): BP systolic 94–140; BP diastolic 54–81
[2019-03-26] MEDS: IPRATROPIUM/ALBUTEROL 0.5-3(2.5)MG/3ML NEB HHN SCH ×3 (01:21→15:38)
[2019-03-26] MEDS: ACETYLCYSTEINE 100MG/ML 10% VIAL 4ML INH SCH ×3 (01:21→15:38)
[2019-03-26] MEDS: HYDROMORPHONE HCL/PF 2MG/ML CPJ IV PRN (04:01)
[2019-03-26] MEDS: BLOOD SUGAR DIAGNOSTIC STRIP TEST SCH ×3 (05:52→17:35)
[2019-03-26] MEDS: INSULIN LISPRO 100 UNITS/ML SUBCUT SCH ×3 (05:53→18:44)
[2019-03-26 06:47] LABS: BASOPHILS % 0.2 % (0.0-2.0); HEMATOCRIT. 22.6 % (42.0-52.0); HEMOGLOBIN. 7.5 g/dL (14.0-18.0); LYMPHOCYTES % 13.5 % (20.0-50.0); MEAN CORPUSCULAR HEMOGLOBIN 30.7 pg (28.0-32.0); MEAN CORPUSCULAR VOLUME 92.4 fL (80.0-94.0); MONOCYTES % 8.4 % (2.0-8.0); NEUTROPHILS % 76.9 % (40.0-76.0); PLATELET 95 x1000/uL (130-400); RED BLOOD CELL COUNT 2.45 mill/uL (4.7-6.1); RED CELL DISTRIBUTION WIDTH 15.3 % (11.6-14.6)
[2019-03-26] MEDS: DOCUSATE SODIUM 100MG CAPSULE PO SCH ×2 (08:08→17:19)
[2019-03-26] MEDS: FAMOTIDINE 20MG/2ML VIAL IV SCH (08:08)
[2019-03-26] MEDS: HYDROCODONE/ACETAMINOPHEN 10/325MG TABLET PO PRN ×3 (08:09→17:27)
[2019-03-26] MEDS: MIDODRINE HCL 5MG TABLET PO SCH ×3 (08:10→21:32)
[2019-03-26] MEDS: INSULIN GLARGINE UD 100 UNITS/ML SYR SUBCUT SCH (11:04)
[2019-03-26] MEDS: FUROSEMIDE 40MG/4ML VIAL IVP SCH (17:18)
[2019-03-26] MEDS: DIPHENHYDRAMINE 50MG/ML VIAL IV PRN (21:30)
[2019-03-27] VITALS (14 sets, daily range): BP systolic 94–151; BP diastolic 61–104
[2019-03-27] MEDS: INSULIN LISPRO 100 UNITS/ML SUBCUT SCH ×4 (00:06→17:57)
[2019-03-27] MEDS: BLOOD SUGAR DIAGNOSTIC STRIP TEST SCH ×4 (00:06→17:40)
[2019-03-27 00:48] LABS: HEMATOCRIT 26.5 % (42.0-52.0); HEMOGLOBIN 8.8 g/dL (14.0-18.0)
[2019-03-27] MEDS: MIDODRINE HCL 5MG TABLET PO SCH ×3 (05:47→21:13)
[2019-03-27] MEDS: HYDROMORPHONE HCL/PF 2MG/ML CPJ IV PRN ×4 (05:48→21:29)
[2019-03-27 07:27] LABS: HEMATOCRIT 28.2 % (42.0-52.0); HEMOGLOBIN 9.4 g/dL (14.0-18.0); MEAN CORPUSCULAR HEMOGLOBIN 30.4 pg (28.0-32.0); PLATELET 109 x1000/uL (130-400); RED CELL DISTRIBUTION WIDTH 16.4 % (11.6-14.6)
[2019-03-27] MEDS: ACETYLCYSTEINE 100MG/ML 10% VIAL 4ML INH SCH ×2 (08:11→16:32)
[2019-03-27] MEDS: IPRATROPIUM/ALBUTEROL 0.5-3(2.5)MG/3ML NEB HHN SCH ×3 (08:11→16:32)
[2019-03-27] MEDS: FUROSEMIDE 40MG/4ML VIAL IVP SCH (10:17)
[2019-03-27] MEDS: FAMOTIDINE 20MG/2ML VIAL IV SCH (10:17)
[2019-03-27] MEDS: DOCUSATE SODIUM 100MG CAPSULE PO SCH ×2 (10:18→17:23)
[2019-03-27] MEDS: INSULIN GLARGINE UD 100 UNITS/ML SYR SUBCUT SCH (11:28)
[2019-03-27] MEDS: HYDROCODONE/ACETAMINOPHEN 10/325MG TABLET PO PRN (12:49)
[2019-03-27] MEDS ORDERED: VANCOMYCIN 1 G PREMIX 200 ML IV SCH (13:00)
[2019-03-27] MEDS ORDERED: INFLUENZA VIRUS VACCINE(AFLURIA) 0.5ML SYR IM ONE (19:45)
== END 2019-03-27 23:25 | DRG 853 ==
LOC: ER 17:59 → EDBEDREQSVC 18:37 → 5EST 19:57 → EDBEDREQTM 20:02 → EDBEDREQSVC 20:02 → EDBEDREQ 20:02 → ENRESERV 20:16 → 5EST 03-18 00:25
PROVIDERS: ADMIT Internal Medicine; ATTEND Internal Medicine
PROC: 02HV33Z Insertion of Infusion Device into Superior Vena Cava, Percutaneous Approach (ICD-10-PCS; 2019-03-18)
PROC: B548ZZA Ultrasonography of Superior Vena Cava, Guidance (ICD-10-PCS; 2019-03-18)
PROC: 06H03DZ Insertion of Intraluminal Device into Inferior Vena Cava, Percutaneous Approach (ICD-10-PCS; 2019-03-23)
PROC: B5191ZZ Fluoroscopy of Inferior Vena Cava using Low Osmolar Contrast (ICD-10-PCS; 2019-03-23)
PROC: 0LQN0ZZ Repair Right Lower Leg Tendon, Open Approach (ICD-10-PCS; 2019-03-23)
PROC: 30233N1 Transfusion of Nonautologous Red Blood Cells into Peripheral Vein, Percutaneous Approach (ICD-10-PCS; 2019-03-24)
PROC: 0SBC0ZZ Excision of Right Knee Joint, Open Approach (ICD-10-PCS; principal; 2019-03-25)
PROC: 0SRC0EZ Replacement of Right Knee Joint with Articulating Spacer, Open Approach (ICD-10-PCS; 2019-03-25)
PROC: 0SPC04Z Removal of Internal Fixation Device from Right Knee Joint, Open Approach (ICD-10-PCS; 2019-03-25)
DX: A41.89 Other specified sepsis (principal); E43 Unspecified severe protein-calorie malnutrition; I82.411 Acute embolism and thrombosis of right femoral vein; E87.1 Hypo-osmolality and hyponatremia; E72.20 Disorder of urea cycle metabolism, unspecified; L03.115 Cellulitis of right lower limb; I42.2 Other hypertrophic cardiomyopathy; N17.9 Acute kidney failure, unspecified; I38 Endocarditis, valve unspecified; M86.68 Other chronic osteomyelitis, other site; M00.061 Staphylococcal arthritis, right knee; M86.671 Other chronic osteomyelitis, right ankle and foot; E11.51 Type 2 diabetes mellitus with diabetic peripheral angiopathy without gangrene; E11.65 Type 2 diabetes mellitus with hyperglycemia; E11.22 Type 2 diabetes mellitus with diabetic chronic kidney disease; I12.9 Hypertensive chronic kidney disease with stage 1 through stage 4 chronic kidney disease, or unspecified chronic kidney disease; N18.9 Chronic kidney disease, unspecified; D63.1 Anemia in chronic kidney disease; K74.60 Unspecified cirrhosis of liver; Z96.659 Presence of unspecified artificial knee joint; E87.6 Hypokalemia; Z96.651 Presence of right artificial knee joint; B95.61 Methicillin susceptible Staphylococcus aureus infection as the cause of diseases classified elsewhere; E11.40 Type 2 diabetes mellitus with diabetic neuropathy, unspecified; E78.5 Hyperlipidemia, unspecified; E11.69 Type 2 diabetes mellitus with other specified complication; H66.91 Otitis media, unspecified, right ear; S76.119A Strain of unspecified quadriceps muscle, fascia and tendon, initial encounter; Z89.431 Acquired absence of right foot; Z86.718 Personal history of other venous thrombosis and embolism; Z86.73 Personal history of transient ischemic attack (TIA), and cerebral infarction without residual deficits; Z95.828 Presence of other vascular implants and grafts; Z89.422 Acquired absence of other left toe(s); W55.12XA Struck by horse, initial encounter; Z79.4 Long term (current) use of insulin; Z83.3 Family history of diabetes mellitus; Z88.0 Allergy status to penicillin; Z88.8 Allergy status to other drugs, medicaments and biological substances; Z68.38 Body mass index [BMI] 38.0-38.9, adult
CPT/HCPCS: 36415; 36569; 36600; 37191; 71045; 73552; 73562; 73590; 73700; 74176; 76770; 76937; 78582; 80048; 80202; 80320; 81003; 82010; 82140; 82375; 82805; 82962; 83036; 83605; 83880; 84145; 84484; 84550; 85014; 85018; 85027; 85651; 86140; 86850; 86900; 86920; 87070; 87075; 87077; 87186; 88304; 88305; 88311; 90686; 90715; 93005; 93306; 93923; 93970; 94640; 97162; 99291; A9558; C1713; C1725; C1769; C1776; C1880; C1893; J0330; J1170; J1200; J1580; J1650; J1815; J1940; J1956; J2175; J2250; J2405; J2704; J2765; J2795; J3010; J3370; J3490; J7030; J7040; J7060; J7608; J7620; L1830; P9016; A4315; G0480

== ENCOUNTER 2022-05-27 15:45 | Inpatient (IN) | payer OTHER, MEDICAID ==
[~2022-05-27] VITALS: Ht 165.1 cm; Wt 89.4 kg
[~2022-05-27 15:45] MED LIST changes: +AMLO10TA80 PO; +ATOR-2 PO; +B50 GT; +CHOL400D7 PO; +FURO40TA5 MT; +INSU100I28 SQ; +METO-539 PO; +SODI10PO PO
[2022-05-27 17:52] LABS: BASOPHILS % 0.7 % (0.0-2.0); EOSINOPHILS % 6.7 % (0.0-5.0); HEMATOCRIT. 29.5 % (42.0-52.0); LYMPHOCYTES % 27.5 % (20.0-50.0); MEAN CORPUSCULAR HEMOGLOBIN 32.7 pg (28.0-32.0); MEAN PLATELET VOLUME 7.6 fl (7.4-10.4); MONOCYTES % 8.5 % (2.0-8.0); NEUTROPHILS % 56.6 % (40.0-76.0); PLATELET 82 x1000/uL (130-400); RED BLOOD CELL COUNT 3.07 mill/uL (4.7-6.1)
[2022-05-27 17:55] LABS: CHLORIDE 112 mEq/L (98-107)
[2022-05-27 18:02] LABS: PARTIAL THROMBOPLASTIN TIME 30.4 sec (23.4-31.0); PROTHROMBIN TIME 10.4 sec (9.6-11.0)
[2022-05-27 18:07] LABS: ETHANOL BLOOD < 10 mg/dL
[2022-05-27 19:04] LABS: *AMPHETAMINES SCREEN URINE NEGATIVE (NEGATIVE); *BARBITURATES SCREEN URINE NEGATIVE (NEGATIVE); *BENZODIAZEPINES SCREEN URINE NEGATIVE (NEGATIVE); *COCAINE SCREEN URINE NEGATIVE (NEGATIVE); CANNABINOID URINE SCREEN NEGATIVE (NEGATIVE); METHADONE URINE SCREEN NEGATIVE (NEGATIVE); OPIATES URINE SCREEN NEGATIVE (NEGATIVE); PHENCYCLIDINE URINE SCREEN NEGATIVE (NEGATIVE)
[2022-05-28] VITALS (14 sets, daily range): BP systolic 117–174; BP diastolic 55–85
[2022-05-28] MEDS ORDERED: DIPH25TA23 MT (10:21)
[2022-05-28] MEDS ORDERED: DEXTROSE 50% WATER 50ML SYRINGE IV PRN (11:00)
[2022-05-28] MEDS: AMLODIPINE 10MG TABLET PO SCH ×2 (11:00→12:41)
[2022-05-28] MEDS ORDERED: IPRATROPIUM BROMIDE (0.02%) 0.5MG/2.5ML NEB HHN PRN (11:00)
[2022-05-28] MEDS: BLOOD SUGAR DIAGNOSTIC STRIP TEST SCH ×3 (12:11→20:06)
[2022-05-28] MEDS: INSULIN LISPRO 100 UNITS/ML SUBCUT SCH ×3 (12:42→21:11)
[2022-05-28] MEDS ORDERED: LIDOCAINE HCL 1% 10 MG/ML 10ML VIAL ONE (12:45)
[2022-05-28] MEDS ORDERED: HYDROCODONE/ACETAMINOPHEN 5/325MG TABLET PO PRN (15:45)
[2022-05-28] MEDS ORDERED: NALOXONE HCL 0.4MG/ML VIAL IV PRN (15:45)
[2022-05-28] MEDS: DIPHENHYDRAMINE 25MG CAPSULE PO NR ×2 (15:48→21:10)
[2022-05-28 18:44] LABS: HEPATITIS B SURFACE ANTIGEN NEGATIVE
[2022-05-29] VITALS (7 sets, daily range): BP systolic 108–174; BP diastolic 57–87
[2022-05-29] MEDS: BLOOD SUGAR DIAGNOSTIC STRIP TEST SCH ×4 (06:00→21:04)
[2022-05-29] MEDS: INSULIN LISPRO 100 UNITS/ML SUBCUT SCH ×4 (06:00→21:08)
[2022-05-29] MEDS: AMLODIPINE 10MG TABLET PO SCH (09:06)
[2022-05-29] MEDS ORDERED: DIPHENHYDRAMINE 50MG/ML VIAL IV NR (13:00)
[2022-05-29] MEDS ORDERED: CLONIDINE 0.2MG TABLET PO NR (14:00)
[2022-05-30] VITALS: BP 127/61
== END 2022-05-30 02:23 | disposition home or self-care (01) | DRG 314 ==
LOC: ER 15:45 → MICUSO 22:21 → EDBEDREQ 22:22 → EDBEDREQTM 22:22 → 7EST 05-28 10:20
PROVIDERS: ADMIT Internal Medicine; ATTEND Internal Medicine
PROC: 0HQ5XZZ Repair Chest Skin, External Approach (ICD-10-PCS; principal; 2022-05-28)
PROC: 5A1D70Z Performance of Urinary Filtration, Intermittent, Less than 6 Hours Per Day (ICD-10-PCS; 2022-05-28)
DX: T82.838A Hemorrhage due to vascular prosthetic devices, implants and grafts, initial encounter (principal); N18.6 End stage renal disease; T82.41XA Breakdown (mechanical) of vascular dialysis catheter, initial encounter; I13.2 Hypertensive heart and chronic kidney disease with heart failure and with stage 5 chronic kidney disease, or end stage renal disease; D64.9 Anemia, unspecified; E11.22 Type 2 diabetes mellitus with diabetic chronic kidney disease; D69.6 Thrombocytopenia, unspecified; Z20.822 Contact with and (suspected) exposure to COVID-19; E78.5 Hyperlipidemia, unspecified; I50.9 Heart failure, unspecified; Y84.1 Kidney dialysis as the cause of abnormal reaction of the patient, or of later complication, without mention of misadventure at the time of the procedure; Z88.0 Allergy status to penicillin; Z99.2 Dependence on renal dialysis; Z79.4 Long term (current) use of insulin; Z79.899 Other long term (current) drug therapy; Z88.1 Allergy status to other antibiotic agents
CPT/HCPCS: 12001; 36415; 71045; 80053; 80305; 80320; 82962; 83036; 83880; 84484; 85025; 86705; 86709; 86803; 87340; 87426; 90935; 93005; 99285; J1200; J1815; J3490; Q0163; G0480